=== PATIENT | female | born 1970 | race Caucasian/White ===

== ENCOUNTER 2017-02-22 10:47 | Emergency (ER) | payer OTHER ==
[~2017-02-22] VITALS: Ht 165.1 cm; Wt 91.6 kg
[~2017-02-22 10:47] MED LIST: COLACE100 MG PO; FERROUS SULFAT325 M2 PO; MOTRIN800 MG PO; NORCO1 TA2 PO; VITAMIN C500 M4 PO
[2017-02-22 12:31] VITALS: BP 120/68
== END 2017-02-22 12:31 | disposition home or self-care (01) ==
LOC: ED 10:47
DX: S20.212A Contusion of left front wall of thorax, initial encounter (principal); S09.90XA Unspecified injury of head, initial encounter; Z79.899 Other long term (current) drug therapy; Y04.2XXA Assault by strike against or bumped into by another person, initial encounter; Y93.89 Activity, other specified; Y92.89 Other specified places as the place of occurrence of the external cause; Y99.8 Other external cause status
CPT/HCPCS: Q0092

== ENCOUNTER 2017-09-24 22:58 | Emergency (ER) | payer OTHER ==
[2017-09-25 01:31] VITALS: BP 125/80
== END 2017-09-25 01:30 | disposition home or self-care (01) ==
LOC: ED 22:58
DX: G44.209 Tension-type headache, unspecified, not intractable (principal); F17.210 Nicotine dependence, cigarettes, uncomplicated; E28.2 Polycystic ovarian syndrome
CPT/HCPCS: 20552; 99406; J2001; Q0162

== ENCOUNTER 2018-06-12 21:25 | Emergency (ER) | payer OTHER ==
[~2018-06-12] VITALS: Ht 165.1 cm; Wt 93.4 kg
[2018-06-12 22:09] VITALS: Ht 165.1 cm; Wt 93.4 kg
[2018-06-13 04:26] VITALS: BP 129/71
== END 2018-06-13 04:26 | disposition home or self-care (01) ==
LOC: ED 21:25
DX: L50.9 Urticaria, unspecified (principal)
CPT/HCPCS: J0171; J2930